=== PATIENT | male | born 1930 | race Caucasian/White ===

== ENCOUNTER 2019-06-01 14:31 | Outpatient (CLI) | payer MEDICARE, OTHER | END 2019-06-01 23:59 | disposition home or self-care (01) | LOC: RAD 14:31 | PROVIDERS: ATTEND Family Medicine | DX: R13.12 Dysphagia, oropharyngeal phase (principal); R47.1 Dysarthria and anarthria; I48.91 Unspecified atrial fibrillation; I12.9 Hypertensive chronic kidney disease with stage 1 through stage 4 chronic kidney disease, or unspecified chronic kidney disease; N18.9 Chronic kidney disease, unspecified; E78.5 Hyperlipidemia, unspecified | CPT/HCPCS: 74230 ==

== ENCOUNTER 2021-04-10 09:02 | Day surgery (SDC) | payer MEDICARE, OTHER ==
[2021-04-09 15:30] LABS: BASOPHILS % (AUTO) 0.5 % (0-1); EOSINOPHILS # (AUTO) 0.1 X10'3 (0-0.9); EOSINOPHILS % (AUTO) 1.6 % (0-6); HEMATOCRIT 40.7 % (42.0-52.0); HEMOGLOBIN 13.7 g/dl (14.0-17.9); LYMPHOCYTES # (AUTO) 1.2 X10'3 (1.1-4.8); LYMPHOCYTES % (AUTO) 20.5 % (21-51); MEAN CORPUSCULAR HEMOGLOBIN 32.7 PG (27.0-31.0); MEAN CORPUSCULAR HGB CONC 33.7 g/dL (33.0-36.5); MEAN CORPUSCULAR VOLUME 97.1 FL (78-98); MEAN PLATELET VOLUME 7.9 FL (7.4-10.4); MONOCYTES # (AUTO) 0.6 X10'3 (0-0.9); MONOCYTES % (AUTO) 10.1 % (2-12); NEUTROPHILS # (AUTO) 3.9 X10'3 (1.8-7.7); NEUTROPHILS % (AUTO) 67.3 % (42-75); PLATELET COUNT 128 X10'3 (140-440); RED BLOOD COUNT 4.19 X10'6 (4.70-6.10); RED CELL DISTRIBUTION WIDTH 14.3 % (11.5-14.5); WHITE BLOOD COUNT 5.8 X10'3 (4.5-11.0)
[2021-04-09 15:39] LABS: ALBUMIN 3.6 G/DL (3.4-5.0); ANION GAP 9 (8-16); BLOOD UREA NITROGEN 21 MG/DL (7-18); BUN/CREATININE RATIO 15.4 (5.4-32.0); CALCIUM 9.3 MG/DL (8.5-10.1); CHLORIDE 103 MMOL/L (99-107); CREATININE 1.36 MG/DL (0.60-1.10); GLUCOSE 98 MG/DL (70-104); SODIUM 141 MMOL/L (135-145); TOTAL CARBON DIOXIDE 28.8 MMOL/L (24-32); eGFR 49 ML/MIN
[2021-04-09 15:42] LABS: PARTIAL THROMBOPLASTIN TIME 30 SECONDS (22-32); POTASSIUM 3.7 MMOL/L (3.5-5.1)
[2021-04-10] VITALS (10 sets, daily range): BP systolic 114–159; BP diastolic 59–87
[~2021-04-10] VITALS: Ht 182.9 cm; Wt 108.7 kg
[2021-04-10] MEDS ORDERED: normal saline 1000ml 1,000 ML IV SCH (09:35)
[2021-04-10] MEDS ORDERED: cefazolin/dext.iso 2gm/50ml 50 ML IV ONE (09:35)
[2021-04-10] MEDS ORDERED: midazolam 1 mg/ML 2ml injection ONE (09:43)
[2021-04-10] MEDS ORDERED: fentaNYL/PF 50MCG/1 ML 2ML syringe ONE (09:43)
[2021-04-10] MEDS ORDERED: LIDOCAINE 1%/EPI 1:100,000 inj. 10 ML multi-dose vial ONE (09:44)
[2021-04-10] MEDS ORDERED: DESV50TA10 PO (09:45)
[2021-04-10] MEDS ORDERED: APIX2.5T PO (09:45)
[2021-04-10] MEDS ORDERED: METH2.5T55 PO (09:45)
[2021-04-10] MEDS ORDERED: FOLIC PO (09:45)
[2021-04-10] MEDS ORDERED: HYDR12.55 PO (09:45)
[2021-04-10] MEDS ORDERED: FINA5TAB11 PO (09:45)
[2021-04-10] MEDS ORDERED: ATEN25TA PO (09:45)
[2021-04-10] MEDS ORDERED: SULF500T59 PO (09:45)
[2021-04-10] MEDS ORDERED: OMEG-43 PO (09:46)
[2021-04-10] MEDS ORDERED: VITAMIN D3 PO (09:47)
[2021-04-10] MEDS ORDERED: LIDOcaine 1% w/EPI 1:100,000 30ml vial (MDV) ONE (09:47)
[2021-04-10] MEDS ORDERED: ceFAZolin 1000mg inj ONE (10:13)
[2021-04-10] MEDS ORDERED: hydrALAZINE 20mg/ml inj. IV ONE (10:49)
[2021-04-10] MEDS ORDERED: vancomycin/NS 1 GM ADD-VANTAGE 250 ML IV ONE (12:30)
== END 2021-04-10 16:15 | disposition home or self-care (01) ==
LOC: SSTAY O 09:02
PROVIDERS: ATTEND Internal Medicine Cardiovascular Disease
DX: Z45.010 Encounter for checking and testing of cardiac pacemaker pulse generator [battery] (principal); I25.10 Atherosclerotic heart disease of native coronary artery without angina pectoris; I10 Essential (primary) hypertension; E78.5 Hyperlipidemia, unspecified; J44.9 Chronic obstructive pulmonary disease, unspecified; I48.21 Permanent atrial fibrillation; G47.33 Obstructive sleep apnea (adult) (pediatric); N18.9 Chronic kidney disease, unspecified; Z79.899 Other long term (current) drug therapy
CPT/HCPCS: 33228; 36415; 80048; 85025; 85610; 85730; 93005; 99152; 99153; C1785; J0360; J0690; J2250; J3010; J3370; J3490; J7030; A4620; A6258; A6449